=== PATIENT | male | born 2000 | race Caucasian/White ===

== ENCOUNTER 2022-09-07 10:34 | Inpatient (IN) ==
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
[2022-09-07 12:16] LABS: Basophils # (auto) 0.03 K/uL (0-0.2); Basophils % (auto) 0.9 %; Eosinophils # (auto) 0.02 K/uL (0-0.50); Eosinophils % (auto) 0.6 %; Hematocrit (blood only) 42.8 % (42.0-52.0); Hemoglobin 14.8 g/dl (14.0-18.0); Lymphocytes # (auto) 0.97 K/uL (1.2-3.4); Lymphocytes % (auto) 28.6 %; Mean Corpuscular Hemoglobin 30.3 pg (25.0-34.0); Mean Corpuscular Hgb Conc 34.6 g/dL (32.0-36.0); Mean Corpuscular Volume 87.5 fL (80.0-100.0); Mean Platelet Volume 9.3 fL (9.4-12.4); Monocytes # (auto) 0.29 K/uL (0.11-0.59); Monocytes % (auto) 8.6 %; Neutrophils # (auto) 2.08 K/uL (1.40-6.50); Neutrophils % (auto) 61.3 %; Platelet Count 212 K/uL (130-400); RDW Coefficient of Variation 11.6 % (11.5-14.5); RDW Standard Deviation 37.6 fL (36.4-46.3); Red Blood Count 4.89 M/uL (4.70-6.10); White Blood Count 3.39 K/ul (4.8-10.8)
[2022-09-07 12:25] LABS: Alanine Aminotransferase 14 U/L (7-52); Albumin Globulin Ratio 1.3 (0.9-2); Albumin Level 4.5 gm/dl (3.4-5.0); Alkaline Phosphatase 92 U/L (34-104); Anion Gap 5 (3-11); Aspartate Aminotransferase 18 U/L (13-39); BUN Creatinine Ratio 12.5 (10-20); Bilirubin,Total 0.6 mg/dl (0.2-1.0); Blood Urea Nitrogen 8 mg/dl (6-23); Calcium 9.4 mg/dl (8.5-10.1); Carbon Dioxide 28 mmol/L (21-32); Chloride 106 mmol/L (98-107); Creatinine Clr Calc Pharmacy 174.3 ml/min; Est GFR (African American) > 150.0 ml/min; Globulin 3.4 gm/dl (2.5-4.0); Glucose 94 mg/dl (70-99(Fasting)); Potassium 3.9 mmol/L (3.5-5.1); Sodium 139 mmol/L (136-145); Total Protein 7.9 gm/dl (6.0-8.3)
[2022-09-07 12:46] LABS: Acetaminophen < 3 ug/ml (10-30); Salicylate < 3.0 mg/dl (3.0-30)
[2022-09-07 14:06] LABS: Appearance Urine Clear (Clear); Bilirubin Urine Negative (Negative); Blood Urine Negative (Negative); Color Urine Yellow; Glucose Urine UA Negative (Negative); Ketones Urine Trace (Negative); Leukocyte Esterase Urine Negative (Negative); Nitrite Urine Negative (Negative); Protein Urine Negative (Negative); Specific Gravity Urine 1.016 (1.000-1.030); Urobilinogen Urine Negative (Negative)
[2022-09-07 14:33] LABS: Amphetamines+Metham, Urine Neg (Neg); Barbiturates, Urine Neg (Neg); Benzodiazepine, Urine Neg (Neg); Cocaine, Urine Neg (Neg); MDMA (Ecstacy), Urine Neg (Neg); Methadone, Urine Neg (Neg); Opiate, Urine Neg (Neg); Phencyclidine, Urine Neg (Neg)
[2022-09-07] MEDS ORDERED: ALUMINUM/MAGNESIUM SUSP 30 ML UDC PO PRN (16:02)
[2022-09-07] MEDS ORDERED: BISMUTH SUBSALICYLATE LIQD 236 ML PO PRN (16:02)
[2022-09-07] MEDS ORDERED: hydrOXYzine HCl 25 MG TAB PO PRN ×2 (16:02)
[2022-09-07] MEDS ORDERED: MAGNESIUM HYDROXIDE SUSP 30 ML UDC PO PRN (16:02)
[2022-09-07] MEDS ORDERED: SODIUM CHLORIDE 0.65% NA SOLN 45 ML (OCEAN) PRN (16:02)
[2022-09-07] MEDS ORDERED: ACETAMINOPHEN 325 MG TAB PO PRN (16:02)
[2022-09-07] MEDS ORDERED: FLUARIX QUADRIVALENT 0.5 ML SYR IM ONE (16:14)
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
[2022-09-08] MEDS ORDERED: hydrOXYzine HCl 10 MG TAB PO PRN (11:17)
[2022-09-08] MEDS: ESCITALOPRAM OXALATE 10 MG TAB PO SCH (11:59)
[2022-09-08] MEDS ORDERED: MIRTAZAPINE TAB 15 MG TAB PO SCH (22:00)
[2022-09-09] MEDS: ESCITALOPRAM OXALATE 10 MG TAB PO SCH (08:49)
--- NOTE | 2022-09-09 14:27 | Psychiatric Progress Note ---
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 Diagnostically consistent with major depressive disorder with anxious distress and generalized anxiety disorder with panic attacks as well as social anxiety and some associated body dysmorphia. He is deemed in need of psychiatric hospitalization for diagnostic clarification, safety and stabilization, medication management and development of further coping skills. 09/09/2022: Still with depression and anxiety. Increased fatigue since starting escitalopram and doesn't seem to be due to grogginess from mirtazapine. Discussed medication adjustment options and he would prefer to switch to bedtime dosing of Lexapro and will switch mirtazapine to as needed as Lexapro may be sedating enough that he doesn't require mirtazapine. SW to look into referral for [employer] [facility] program for healthy eating and body dysmorphia support. (1) Recurrent severe major depressive disorder with anxiety: (2) Generalized anxiety disorder with panic attacks: (3) Social anxiety disorder: Plan 09/09/2022: Additional escitalopram 5mg HS dose tonight then tomorrow switch to 10mg HS dosing. Mirtazapine 7.5mg hs prn for insomnia. 09/08/2022: The patient was admitted to the [facility] ([facility] inpatient mental health unit) on q15 min checks (behavioral with suicide precautions) for safety. The patient will participate in group, recreational, and milieu therapies and will be offered additional individual and family sessions as clinically ap propriate. -Start escitalopram 5mg daily -Mirtazapine 7.5mg HS Inventory Assets Strengths: supportive relationships, willing to get treatment, hard worker Needs: safety and stabilization, medication adjustment, additional coping skills, increased outpatient services Suicide Risk Level Suicide Risk Level: High-Moderate (q15 min suicide checks) (severe depression with SI with plan prior to admission and anxiety with panic attacks but feels safe in the hospital, able to safety contract and agrees to let nursing/staff know should they develop plan, intent or feel unable to remain safe.) Suicide Risk Level Comments: Risk Factors Assessment Male: Yes Do You Have Access To A Gun?: No Health Problems: No Mental Health Diagnoses: Yes Substance Use Disorders: No Previous Attempt: No Family History of Suicide: No Previous Psychiatric Hospitalization: No Hopelessness: Yes Protective Factors Assessment Employed: Yes (Works at [employer] part-time) Stable Relationships: Yes Supportive Family: Yes Interval History Identifying Information DUSTY KUMAR is a 22-year-old man and [employer] student who currently lives in an off campus apartment with roommates, has a history of depression and anxiety, and was admitted on 09/07/22 15:28 on a 201 voluntary commitment for severe depression with SI and hopelessness and unable to remain safe. Chief Complaint "I'm a little tired". Review of Systems Sleep Information Total Hours of Sleep: 7 Meal Information Percent Meal Consumed - Breakfast: 100 Percent Meal Consumed - Lunch: 100 Percent Meal Consumed - Dinner: 100 Subjective Subjective Patient was seen & assessed and interval progress reviewed with treatment team nursing and social work. After first dose of escitalopram yesteday he felt more tired and feels more tired again today even though he slept much better with mirtazapine last night. Still with anxiety and depression but feels safe in the hospital. Reviewed option for outpatient eating disorder/body dysmorphia treatment which he is willing to be referred for. Physical Exam Psychiatric Orientation: alert and oriented x 3 Apperance: appropriately dressed and appropriately groomed Eye Contact: good eye contact Motor Behavior: no abnormal motor movements Speech: normal rate/rhythm/volume of speech Affect: + depressed affect and + anxious affect Mood: + depressed mood and + anxious mood Thought Process: goal directed thought process Thought Content: reality based without delusions Suicidal Thoughts: denies suicidal plan (none for in the hospital) and denies suicidal intent; + reports suicidal thoughts (intermittent thoughts ) Homicidal Thoughts: denies homicidal thoughts Hallucinations: no auditory hallucinations and no visual hallucinations Cognition: recent memory grossly intact, remote memory grossly intact, attention grossly intact and language grossly intact Estimated Intelligence: consistent with education level Insight: + fair insight Judgment: + fair judgement Vital Signs (Past 24 Hours) Last Vital Signs Temp 36.6 C 09/09/22 06:42 Pulse 74 09/09/22 06:43 Resp 16 09/09/22 06:42 BP 95/59 L 09/09/22 06:43 Pulse Ox 99 09/08/22 06:00 O2 Del Method Room Air 09/08/22 06:00 Results & Data ([facility]) Current Inpatient Medications Current Inpatient Medications: Current Inpatient Medications Acetaminophen (Acetaminophen 325 Mg Tab) 650 mg PO Q4H PRN PRN Reason: Headache or Minor Fever Stop: 10/07/22 16:01 Al Hydrox/Mg Hydrox/Simethicone (Aluminum/Magnesium Susp 30 Ml Udc) 30 ml PO Q4H PRN PRN Reason: GI Upset Stop: 10/07/22 16:01 Bismuth Subsalicylate (Bismuth Subsalicylate Liqd 236 Ml) 15 ml PO PRN PRN PRN Reason: Loose Stool Stop: 10/07/22 16:01 Escitalopram Oxalate (Escitalopram Oxalate 10 Mg Tab) 5 mg PO QAM ROBERT Stop: 10/08/22 11:59 Last Admin: 09/09/22 08:49 Dose: 5 mg Hydroxyzine HCl (Hydroxyzine Hcl 25 Mg Tab) 50 mg PO HSZ PRN PRN Reason: Insomnia Stop: 10/07/22 16:01 Hydroxyzine HCl (Hydroxyzine Hcl 10 Mg Tab) 10 mg PO Q4H PRN PRN Reason: Anxiety Stop: 10/07/22 16:01 Magnesium Hydroxide (Magnesium Hydroxide Susp 30 Ml Udc) 30 ml PO DAILY PRN PRN Reason: Constipation Stop: 10/07/22 16:01 Mirtazapine (Mirtazapine Tab 15 Mg Tab) 7.5 mg PO HS ROBERT Stop: 10/08/22 21:59 Last Admin: 09/08/22 21:30 Dose: 7.5 mg Sodium Chloride (Sodium Chloride 0.65% Na Soln 45 Ml ([place])) 1 - 2 sprays NA PRN PRN PRN Reason: Nasal Dryness/Congestion Stop: 10/07/22 16:01 Mental Health & Subst Abuse Tx Psychiatrist Name of Psychiatrist: Radu Reich - Simran Ansari PA-C Psychiatrist's Date Of Appointment With Psychiatric Provider: 09/17/22 Time of Appointment with Psychiatrist: 1:30 PM (please call 24 hrs in advance if you need to reschedule) Psychiatric Appointment Comment: [address] [place] [address] Therapist Name of Therapist: [facility] - Darrion Acosta LCSW Therapist's Therapy Appointment Comment: [address] [place] Assistant Research Scientist Name of Assistant Research Scientist: [employer] Phone Number for Assistant Research Scientist: [phone] Case Management Appointment Comment: Please check your [employer] email for Zoom link. Post Discharge Appointments Primary Care Physician Name Of Family Doctor/PCP: ANTHONY Contact Information Discharge Discharge Address: [address] [place] [address]
[2022-09-09] MEDS: MIRTAZAPINE TAB 15 MG TAB PO PRN (21:38)
[2022-09-09] MEDS ORDERED: ESCITALOPRAM OXALATE 10 MG TAB PO SCH (22:00)
--- NOTE | 2022-09-10 11:48 | Psychiatric Progress Note ---
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 Diagnostically consistent with major depressive disorder with anxious distress and generalized anxiety disorder with panic attacks as well as social anxiety and some associated body dysmorphia. He is deemed in need of psychiatric hospitalization for diagnostic clarification, safety and stabilization, medication management and development of further coping skills. 09/10/2022: Mood starting to improve. Tolerated HS dose of escitalopram much better without fatigue today, remains agreeable to taking 10mg dose of escitalopram starting tonight. Continuing to discuss ways to challenge cognitive distortions and involve his supports. (1) Recurrent severe major depressive disorder with anxiety: (2) Generalized anxiety disorder with panic attacks: (3) Social anxiety disorder: Plan 09/10/2022: Escitalopram 10mg HS 09/09/2022: Additional escitalopram 5mg HS dose tonight then tomorrow switch to 10mg HS dosing. Mirtazapine 7.5mg hs prn for insomnia. 09/08/2022: The patient was admitted to the [facility] ([facility] mental health unit) on q15 min checks (behavioral with suicide precautions) for safety. The patient will participate in group, recreational, and milieu therapies and will be offered additional individual and family sessions as clinically appropriate. -Start escitalopram 5mg daily -Mirtazapine 7.5mg HS Inventory Assets Strengths: supportive relationships, willing to get treatment, hard worker Needs: safety and stabilization, medication adjustment, additional coping skills, increased outpatient services Suicide Risk Level Suicide Risk Level: Moderate (q15 min suicide checks) (severe depression with SI with plan prior to admission and anxiety with panic attacks but mood improving, denies SI and feels safe in the hospital, able to safety contract and agrees to let nursing/staff know should they develop plan, intent or feel unable to remain safe.) Suicide Risk Level Comments: Risk Factors Assessment Male: Yes Do You Have Access To A Gun?: No Health Problems: No Mental Health Diagnoses: Yes Substance Use Disorders: No Previous Attempt: No Family History of Suicide: No Previous Psychiatric Hospitalization: No Hopelessness: Yes Protective Factors Assessment Employed: Yes (Works at [employer] part-time) Stable Relationships: Yes Supportive Family: Yes Interval History Identifying Information DUSTY KUMAR is a 22-year-old man and [employer] student who currently lives in an off campus apartment with roommates, has a history of depression and anxiety, and was admitted on 09/07/22 15:28 on a 201 voluntary commitment for severe depression with SI and hopelessness and unable to remain safe. Chief Complaint "I had a lot of anxiety this morning". Review of Systems Sleep Information Total Hours of Sleep: 6.5 Meal Information Percent Meal Consumed - Breakfast: 70 Percent Meal Consumed - Lunch: 100 Percent Meal Consumed - Dinner: 100 Subjective Subjective Patient was seen & assessed and interval progress reviewed with treatment team nursing and social work. Attending all groups. met with [facility] counselor this morning and had some anxiety after this as he thought more about how he might explain to his friends and boss where he has been and what lead to him being in the hospital. We reviewed different ways he talk with others depending on how much or how little he feels comfortable sharing with them. He doesn't have the fatigue today with holding the morning dose of escitalopram. He slept well last night with HS dose escitalopram and didn't need the mirtazapine. He denies any side effects from the higher dose of escitalopram yesterday. Physical Exam Psychiatric Orientation: alert and oriented x 3 Apperance: appropriately dressed and appropriately groomed Eye Contact: good eye contact Motor Behavior: no abnormal motor movements Speech: normal rate/rhythm/volume of speech Affect: + anxious affect Mood: + depressed mood and + anxious mood Thought Process: goal directed thought process Thought Content: reality based without delusions Suicidal Thoughts: denies suicidal thoughts, denies suicidal plan and denies suicidal intent Homicidal Thoughts: denies homicidal thoughts Hallucinations: no auditory hallucinations and no visual hallucinations Cognition: recent memory grossly intact, remote memory grossly intact, attention grossly intact and language grossly intact Estimated Intelligence: consistent with education level Insight: + fair insight Judgment: + fair judgement Vital Signs (Past 24 Hours) Last Vital Signs Temp 36.5 C 09/10/22 06:25 Pulse 72 09/10/22 06:26 Resp 16 09/10/22 06:25 BP 104/58 L 09/10/22 06:26 Pulse Ox 99 09/08/22 06:00 O2 Del Method Room Air 09/08/22 06:00 Results & Data ([facility]) Current Inpatient Medications Current Inpatient Medications: Current Inpatient Medications Acetaminophen (Acetaminophen 325 Mg Tab) 650 mg PO Q4H PRN PRN Reason: Headache or Minor Fever Stop: 10/07/22 16:01 Al Hydrox/Mg Hydrox/Simethicone (Aluminum/Magnesium Susp 30 Ml Udc) 30 ml PO Q4H PRN PRN Reason: GI Upset Stop: 10/07/22 16:01 Bismuth Subsalicylate (Bismuth Subsalicylate Liqd 236 Ml) 15 ml PO PRN PRN PRN Reason: Loose Stool Stop: 10/07/22 16:01 Escitalopram Oxalate (Escitalopram Oxalate 10 Mg Tab) 10 mg PO HS ROBERT Stop: 10/10/22 21:59 Hydroxyzine HCl (Hydroxyzine Hcl 25 Mg Tab) 50 mg PO HSZ PRN PRN Reason: Insomnia Stop: 10/07/22 16:01 Hydroxyzine HCl (Hydroxyzine Hcl 10 Mg Tab) 10 mg PO Q4H PRN PRN Reason: Anxiety Stop: 10/07/22 16:01 Magnesium Hydroxide (Magnesium Hydroxide Susp 30 Ml Udc) 30 ml PO DAILY PRN PRN Reason: Constipation Stop: 10/07/22 16:01 Mirtazapine (Mirtazapine Tab 15 Mg Tab) 7.5 mg PO HS PRN PRN Reason: Insomnia Stop: 10/08/22 21:59 Last Admin: 09/09/22 21:38 Dose: 7.5 mg Sodium Chloride (Sodium Chloride 0.65% Na Soln 45 Ml ([place])) 1 - 2 sprays NA PRN PRN PRN Reason: Nasal Dryness/Congestion Stop: 10/07/22 16:01 Mental Health & Subst Abuse Tx Psychiatrist Name of Psychiatrist: Radu Reich - Simran Ansari PA-C Psychiatrist's Date Of Appointment With Psychiatric Provider: 09/17/22 Time of Appointment with Psychiatrist: 1:30 PM (please call 24 hrs in advance if you need to reschedule) Psychiatric Appointment Comment: [address] [facility], [place] [address] Therapist Name of Therapist: [place] [facility] - Darrion Acosta LCSW Therapist's Therapy Appointment Comment: [address] [facility], [address] [place] Correctional Officer Name of Correctional Officer: [employer] Phone Number for Correctional Officer: [phone] Case Management Appointment Comment: Please check your [employer] email for Zoom link. Post Discharge Appointments Primary Care Physician Name Of Family Doctor/PCP: [facility] Primary Care Time of Appointment with PCP: Follow up as needed for primary care. Provider Appointment Comment: [facility], [place] [facility] Contact Information Discharge Discharge Address: [address] [place] [address]
[2022-09-10] MEDS: ESCITALOPRAM OXALATE 10 MG TAB PO SCH (21:13)
[2022-09-10] MEDS: MIRTAZAPINE TAB 15 MG TAB PO PRN (21:23)
--- NOTE | 2022-09-11 20:41 | Psychiatric Progress Note ---
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 Diagnostically consistent with major depressive disorder with anxious distress and generalized anxiety disorder with panic attacks as well as social anxiety and some associated body dysmorphia. He is deemed in need of psychiatric hospitalization for diagnostic clarification, safety and stabilization, medication management and development of further coping skills. 09/11/2022: Mood gradually improving, tolerating higher dose of escitalopram. More future-oriented. Actively participating in groups and treatment discussions. (1) Recurrent severe major depressive disorder with anxiety: (2) Generalized anxiety disorder with panic attacks: (3) Social anxiety disorder: Plan 09/11/2022: Continue current medications and tx plan. 09/10/2022: Escitalopram 10mg HS 09/09/2022: Additional escitalopram 5mg HS dose tonight then tomorrow switch to 10mg HS dosing. Mirtazapine 7.5mg hs prn for insomnia. 09/08/2022: The patient was admitted to the [facility]) on q15 min checks (behavioral with suicide precautions) for safety. The patient will participate in group, recreational, and milieu therapies and will be offered additional individual and family sessions as clinically appropriate. -Start escitalopram 5mg daily -Mirtazapine 7.5mg HS Inventory Assets Strengths: supportive relationships, willing to get treatment, hard worker Needs: safety and stabilization, medication adjustment, additional coping skills, increased outpatient services Suicide Risk Level Suicide Risk Level: Moderate (q15 min suicide checks) (severe depression with SI with plan prior to admission and anxiety with panic attacks but mood improving, denies SI and feels safe in the hospital, able to safety contract and agrees to let nursing/staff know should they develop plan, intent or feel unable to remain safe.) Suicide Risk Level Comments: Risk Factors Assessment Male: Yes Do You Have Access To A Gun?: No Health Problems: No Mental Health Diagnoses: Yes Substance Use Disorders: No Previous Attempt: No Family History of Suicide: No Previous Psychiatric Hospitalization: No Hopelessness: Yes Protective Factors Assessment Employed: Yes (Works at [employer] part-time) Stable Relationships: Yes Supportive Family: Yes Interval History Identifying Information DUSTY KUMAR is a 22-year-old man and [employer] student who currently lives in an off campus apartment with roommates, has a history of depression and anxiety, and was admitted on 09/07/22 15:28 on a 201 voluntary commitment for severe depression with SI and hopelessness and unable to remain safe. Chief Complaint "I'm good". Review of Systems Sleep Information Total Hours of Sleep: 7 Meal Information Percent Meal Consumed - Breakfast: 75 Percent Meal Consumed - Lunch: 80 Percent Meal Consumed - Dinner: 100 Subjective Subjective Patient was seen & assessed and interval progress reviewed with treatment team nursing and social work. Attending groups. Had family meeting mid-day and felt well supported by his mom. Slept well with escitalopram at hs. No side effects. Still feels a little tired and with decreased motivation in the morning but this is improving compared with prior to this hospitalization. Reviewed anticipated time course of when depressive symptoms of decreased motivation/low energy kimmie uld improve with escitalopram over next 2-6 weeks. He is looking forward to seeing his mom this weekend and going to an educational activity on Thursday. Denies SI. No other questions or concerns. Physical Exam Psychiatric Orientation: alert and oriented x 3 Apperance: appropriately dressed and appropriately groomed Eye Contact: good eye contact Motor Behavior: no abnormal motor movements Speech: normal rate/rhythm/volume of speech Affect: euthymic affect Mood: + depressed mood and + anxious mood Thought Process: goal directed thought process Thought Content: reality based without delusions Suicidal Thoughts: denies suicidal thoughts, denies suicidal plan and denies suicidal intent Homicidal Thoughts: denies homicidal thoughts Hallucinations: no auditory hallucinations and no visual hallucinations Cognition: recent memory grossly intact, remote memory grossly intact, attention grossly intact and language grossly intact Estimated Intelligence: consistent with education level Insight: + fair insight Judgment: good judgement Vital Signs (Past 24 Hours) Last Vital Signs Temp 36.8 C 09/11/22 20:00 Pulse 73 09/11/22 06:42 Resp 18 09/11/22 06:41 BP 106/70 09/11/22 06:42 Pulse Ox 99 09/08/22 06:00 O2 Del Method Room Air 09/08/22 06:00 Results & Data ([facility]) Current Inpatient Medications Current Inpatient Medications: Current Inpatient Medications Acetaminophen (Acetaminophen 325 Mg Tab) 650 mg PO Q4H PRN PRN Reason: Headache or Minor Fever Stop: 10/07/22 16:01 Al Hydrox/Mg Hydrox/Simethicone (Aluminum/Magnesium Susp 30 Ml Udc) 30 ml PO Q4H PRN PRN Reason: GI Upset Stop: 10/07/22 16:01 Bismuth Subsalicylate (Bismuth Subsalicylate Liqd 236 Ml) 15 ml PO PRN PRN PRN Reason: Loose Stool Stop: 10/07/22 16:01 Escitalopram Oxalate (Escitalopram Oxalate 10 Mg Tab) 10 mg PO HS ROBERT Stop: 10/10/22 21:59 Last Admin: 09/10/22 21:13 Dose: 10 mg Hydroxyzine HCl (Hydroxyzine Hcl 25 Mg Tab) 50 mg PO HSZ PRN PRN Reason: Insomnia Stop: 10/07/22 16:01 Hydroxyzine HCl (Hydroxyzine Hcl 10 Mg Tab) 10 mg PO Q4H PRN PRN Reason: Anxiety Stop: 10/07/22 16:01 Magnesium Hydroxide (Magnesium Hydroxide Susp 30 Ml Udc) 30 ml PO DAILY PRN PRN Reason: Constipation Stop: 10/07/22 16:01 Mirtazapine (Mirtazapine Tab 15 Mg Tab) 7.5 mg PO HS PRN PRN Reason: Insomnia Stop: 10/08/22 21:59 Last Admin: 09/10/22 21:23 Dose: 7.5 mg Sodium Chloride (Sodium Chloride 0.65% Na Soln 45 Ml ([place])) 1 - 2 sprays NA PRN PRN PRN Reason: Nasal Dryness/Congestion Stop: 10/07/22 16:01 Mental Health & Subst Abuse Tx Psychiatrist Name of Psychiatrist: Radu Reich - Simran Ansari PA-C Psychiatrist's Date Of Appointment With Psychiatric Provider: 09/22/22 Time of Appointment with Psychiatrist: 10:20 AM (please call 24 hrs in advance if you need to reschedule) Psychiatric Appointment Comment: [address] [facility], [place] [address] Therapist Name of Therapist: [place] [facility] - Darrion Acosta LCSW Therapist's Date of Therapist Appointment: 09/18/22 Time of Therapist Appointment: 2:00 PM Therapy Appointment Comment: Please complete paperwork in patient portal (in [employer] email). Goal Umpire Name of Goal Umpire: Student Brandie and Marc Jimenez Phone Number for Goal Umpire: [phone] Date of Appointment with Goal Umpire: 09/15/22 Time of Appointment with Goal Umpire: 9:00 AM Case Management Appointment Comment: Please check your [employer] email for Zoom link. Post Discharge Appointments Primary Care Physician Name Of Family Doctor/PCP: [facility] Primary Care Time of Appointment with PCP: Follow up as needed for primary care. Provider Appointment Comment: [facility], [place] FOY Contact Information Discharge Discharge Address: [address] [place] [address]
[2022-09-11] MEDS: ESCITALOPRAM OXALATE 10 MG TAB PO SCH (21:27)
--- NOTE | 2022-09-12 08:46 | Discharge Summary ---
Date of Service September 12, 2022 History of Present Illness Will presents for psychiatric admission for worsening depression, anxiety, hopelessness and SI with possible plans of using a knife and feeling unable to remain safe outside of secure hospital setting. His mood has been worsening in the context of multiple psychosocial stressors including school and work stress, thinking about the future and has been struggling to attend classes. Finds he's been feeling more overwhelmed about being around people both at work and when walking to class such as wondering if they are thinking negative things about him or judging him in some way. He's experienced anxiety all his life but it's gotten worse since his sophomore year of college. Uncomfortable in social situations and when giving presentations. He's also been experiencing increased generalized anxiety with panic attacks occurring more frequently and more intense starting two weeks ago now occurring twice daily (previously occurred once per week). He started to develop SI last week and endorses symptoms of depression including anhedonia, hopelessness, difficulty concentrating, decreased motivation/energy level, decreased appetite and decreased sleep about 4-5 hours per night with sleep onset insomnia and waking up early. Further recent history reviewed and confirmed as documented by EM psych CM on 09/07/2022: "Patient presents calm, sad, somewhat anxious, but remains cooperative in answering all questions asked of him. Patient came to the ED today because he is having trouble controlling his negative thoughts that have turned into more intense suicidal ideations, onset about one week ago. Patient has not developed a plan but had thoughts to use a knife. Patient states I dont want to be alive. At the beginning of the last semester, patient used a wire drawing setter and burned his arm, this is the first time he participated in self- harm. 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 Patient does not have any outpatient mental health providers, nor is he prescribed any psychotropic medications, but has a history of both. Patient denies any previous psychiatric admissions. Patient identifies stressors as job at [employer] and school. Patient has been getting his homework completed, but has not been attending classes. Patient reports depressive symptoms as feelings of helpless/hopelessness, worthlessness, loss of daily functioning, lack of motivation, isolating/avoiding, anhedonia, poor concentration, decrease in ADLs, appetite and sleep. Patient describes moderate/severe anxiety on most days with symptoms of chest discomfort, shortness of breath, sweating, trembling, excessive worry, racing thoughts and headaches with occasional panic attacks. Patient reports occasional alcohol use, 1x weekly, denies drug and tobacco use. Patient lives in an apartment with 3 other roommates and he reports relationships are okay. 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 Patient especially enjoys running, listening to music, crossword puzzles and talking/spending time with friends. Patient does admit to losing quite a bit of interest in activities that had once brought him sharee." He is not currently prescribed any psychiatric medications. Psychiatric ROS notable for no current nor history of symptoms of neftali, psychosis, PTSD, OCD. 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 History of self- harm via burning once about 1 month ago after a falling out with friends. Physical Exam Vital Signs (Past 24 Hours) Last Vital Signs Temp 36.5 C 09/12/22 06:52 Pulse 73 09/12/22 06:52 Resp 16 09/12/22 06:52 BP 95/63 L 09/12/22 06:52 Pulse Ox 99 09/08/22 06:00 O2 Del Method Room Air 09/08/22 06:00 See admission H&P and DOD summary. Principal Diagnosis Major Depressive Disorder with anxious distress Psychiatric Data See daily stay summary. In short, patient was engaged with the social/therapeutic milieu of the unit, safety was maintained and the patient was cooperative with care. Medication changes included initiation of escitalopram 10mg HS and mirtazapine 7.5mg HS prn for insomnia and he tolerated this well. A family session was held and safety plan was completed prior to discharge. He actively and insightfully participated in safety planning and in discussions about ways to seek support and recognizing warning signs and utilizing coping skills. Reviewed mobile apps that could be used for additional ways to have their safety plan and contacts easily available should thoughts of SI re-emerge in the future. Reviewed importance of seeking emergency care should SI intensify, worsen or should they feel unsafe in the future which they agree to do. On the day of discharge he stated his mood was "pretty good" and remained future-oriented including seeing his friends, getting new shoes, seeing his mom and engaging in aftercare appointments for psychiatry, therapy and [employer] student care and advocacy. Day of Discharge Assessment Today the patient voices readiness for discharge. They note improvement in mood and anxiety. They deny thoughts of harm to self or others. Thoughts are organized and they are clinically improved from admission. There is no evidence of psychosis. They improved in the hospital with support and medication adjustments. They agree to take medications as prescribed and keep follow-up appointments. At the time of the discharge they are deemed to be stable and appropriate for outpatient level of care. They are not deemed to be at imminent risk of harm to self or others. They are aware of emergency and crisis services. Knows to call 911 or go to nearest emergency care center if in a crisis which cannot be handled as an outpatient. Transition of Care Transition Of Care Record: was reviewed with the patient Advance Directives Advance Directives Information Provided: Yes Advance Directives: No Mental Health Advance Directive: No Advance Directives on File: No Living Will: No Power of Bleach Machine Operator: No Advance Directives Reason:: Declines as Mental Health Visit. Suicide Risk Level Suicide Risk Level Comments: Acute risk is low given improvement in mood and denial of SI, lack of access to lethal means, improvement in sleep, hopefulness. Chronic risk is low given few non-modifiable risk factors: psychiatric co-morbid diagnoses, history of self- harm, but also with many protective factors including: employed/student, good social support, sense of responsibility to family and social supports, outpatient care in place, positive coping skills, positive problem solving, capacity to establish therapeutic alliance, willingness to engage with treatment, capacity for self-observation. Counseled on ways to reduce acute and chronic risk including engaging with outpatient providers, using safety plan if needed, utilizing supports, taking medication, and using coping skills. Modifiable risk factors of SI, anxiety and depression were addressed during hospitalization through development of new coping skills, family meeting, safety planning, and medication adjustments. Risk Factors Assessment Male: Yes Do You Have Access To A Gun?: No Health Problems: No Mental Health Diagnoses: Yes Substance Use Disorders: No Previous Attempt: No Family History of Suicide: No Previous Psychiatric Hospitalization: No Hopelessness: No Protective Factors Assessment Employed: Yes (Works at [employer] part-time) Stable Relationships: Yes Supportive Family: Yes Discharge Data Lab Results 09/07/22 09/07/22 09/07/22 11:35 11:51 11:51 WBC 3.39 L RBC 4.89 Hgb 14.8 Hct 42.8 MCV 87.5 MCH 30.3 MCHC 34.6 RDW Std Deviation 37.6 RDW Coeff of Leyla 11.6 Plt Count 212 MPV 9.3 L Immature Gran % (Auto) 0.0 Neut % (Auto) 61.3 Lymph % (Auto) 28.6 Hartley % (Auto) 8.6 Eos % (Auto) 0.6 Baso % (Auto) 0.9 Neut # (Auto) 2.08 Lymph # (Auto) 0.97 L Hartley # (Auto) 0.29 Eos # (Auto) 0.02 Baso # (Auto) 0.03 Immature Gran # (Auto) 0.00 L Sodium 139 Potassium 3.9 Chloride 106 Carbon Dioxide 28 Anion Gap 5 BUN 8 Creatinine 0.64 Est Cr Clr Drug Dosing 174.3 Est GFR ( Amer) > 150.0 Est GFR (Non-Af Amer) 140.0 BUN/Creatinine Ratio 12.5 Glucose 94 Calcium 9.4 Total Bilirubin 0.6 AST 18 ALT 14 Alkaline Phosphatase 92 Total Protein 7.9 Albumin 4.5 Globulin 3.4 Albumin/Globulin Ratio 1.3 TSH Urine Color Urine Appearance Urine pH Ur Specific Dobson Urine Protein Urine Glucose (UA) Urine Ketones Urine Blood Urine Nitrite Urine Bilirubin Urine Urobilinogen Ur Leukocyte Esterase Salicylates Urine Opiates Screen Ur Methadone, Qual Acetaminophen Urine Barbiturates Ur Phencyclidine (PCP) U Amphetamin/Meth Scrn MDMA (Ecstasy) Screen U Benzodiazepines Scrn Ur Cocaine Metabolite U Marijuana (THC) Screen Ethyl Alcohol mg/dL SARS-CoV-2, RNA, NAAT NEGATIVE 09/07/22 09/07/22 09/07/22 11:51 11:51 11:51 WBC RBC Hgb Hct MCV MCH MCHC RDW Std Deviation RDW Coeff of Leyla Plt Count MPV Immature Gran % (Auto) Neut % (Auto) Lymph % (Auto) Hartley % (Auto) Eos % (Auto) Baso % (Auto) Neut # (Auto) Lymph # (Auto) Hartley # (Auto) Eos # (Auto) Baso # (Auto) Immature Gran # (Auto) Sodium Potassium Chloride Carbon Dioxide Anion Gap BUN Creatinine Est Cr Clr Drug Dosing Est GFR ( Amer) Est GFR (Non-Af Amer) BUN/Creatinine Ratio Glucose Calcium Total Bilirubin AST ALT Alkaline Phosphatase Total Protein Albumin Globulin Albumin/Globulin Ratio TSH 1.207 Urine Color Urine Appearance Urine pH Ur Specific Dobson Urine Protein Urine Glucose (UA) Urine Ketones Urine Blood Urine Nitrite Urine Bilirubin Urine Urobilinogen Ur Leukocyte Esterase Salicylates < 3.0 L Urine Opiates Screen Ur Methadone, Qual Acetaminophen < 3 L Urine Barbiturates Ur Phencyclidine (PCP) U Amphetamin/Meth Scrn MDMA (Ecstasy) Screen U Benzodiazepines Scrn Ur Cocaine Metabolite U Marijuana (THC) Screen Ethyl Alcohol mg/dL < 10.0 SARS-CoV-2, RNA, NAAT 09/07/22 09/07/22 13:52 13:52 WBC RBC Hgb Hct MCV MCH MCHC RDW Std Deviation RDW Coeff of Leyla Plt Count MPV Immature Gran % (Auto) Neut % (Auto) Lymph % (Auto) Hartley % (Auto) Eos % (Auto) Baso % (Auto) Neut # (Auto) Lymph # (Auto) Hartley # (Auto) Eos # (Auto) Baso # (Auto) Immature Gran # (Auto) Sodium Potassium Chloride Carbon Dioxide Anion Gap BUN Creatinine Est Cr Clr Drug Dosing Est GFR ( Amer) Est GFR (Non-Af Amer) BUN/Creatinine Ratio Glucose Calcium Total Bilirubin AST ALT Alkaline Phosphatase Total Protein Albumin Globulin Albumin/Globulin Ratio TSH Urine Color Yellow Urine Appearance Clear Urine pH 8.0 H Ur Specific Dobson 1.016 Urine Protein Negative Urine Glucose (UA) Negative Urine Ketones Trace H Urine Blood Negative Urine Nitrite Negative Urine Bilirubin Negative Urine Urobilinogen Negative Ur Leukocyte Esterase Negative Salicylates Urine Opiates Screen Neg Ur Methadone, Qual Neg Acetaminophen Urine Barbiturates Neg Ur Phencyclidine (PCP) Neg U Amphetamin/Meth Scrn Neg MDMA (Ecstasy) Screen Neg U Benzodiazepines Scrn Neg Ur Cocaine Metabolite Neg U Marijuana (THC) Screen Neg Ethyl Alcohol mg/dL SARS-CoV-2, RNA, NAAT Hospital Course (1) Recurrent severe major depressive disorder with anxiety: (2) Generalized anxiety disorder with panic attacks: (3) Social anxiety disorder: Plan 09/11/2022: Continue current medications and tx plan. 09/10/2022: Escitalopram 10mg HS 09/09/2022: Additional escitalopram 5mg HS dose tonight then tomorrow switch to 10mg HS dosing. Mirtazapine 7.5mg hs prn for insomnia. 09/08/2022: The patient was admitted to the [facility] ([facility] inpatient mental health unit) on q15 min checks (behavioral with suicide precautions) for safety. The patient will participate in group, recreational, and milieu therapies and will be offered additional individual and family sessions as clinically appropriate. -Start escitalopram 5mg daily -Mirtazapine 7.5mg HS Mental Health & Subst Abuse Tx Psychiatrist Name of Psychiatrist: Radu Reich - Simran Ansari PA-C Psychiatrist's Date Of Appointment With Psychiatric Provider: 09/22/22 Time of Appointment with Psychiatrist: 10:20 AM (please call 24 hrs in advance if you need to reschedule) Psychiatric Appointment Comment: [address] [place] [address] Therapist Name of Therapist: [facility] - Darrion Acosta LCSW Therapist's Date of Therapist Appointment: 09/18/22 Time of Therapist Appointment: 2:00 PM Therapy Appointment Comment: Please complete paperwork in patient portal (in [employer] email). 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 Post Discharge Appointments Primary Care Physician Name Of Family Doctor/PCP: [facility] Primary Care Time of Appointment with PCP: Follow up as needed for primary care. Provider Appointment Comment: [facility], [place] [facility] Other #1: Name of Aftercare Appointment: [facility] Kelley, Yisel Carter ([facility]) Phone Number of Aftercare Appointment: [phone] Date of Aftercare Appointment: 09/17/22 Time of Aftercare Appointment: 12:30 pm Aftercare Appointment Comment: Check your [facility] email for appointment details (can reschedule if needed). Contact Information Discharge Discharge Address: [address] [place] [address], [address] Discharge Plan Discharge Items Patient Disposition: Home - Self-Care Reason For Visit: MENTAL HEALTH EVALUATION Discharge Diagnosis: Major Depressive Disorder with anxious distress Activity: Resume your previous activity Non-emergency contact: Primary Care Provider, Psychiatrist and Therapist Call non-emergency contact if: you have any medication questions and your symptoms worsen Follow-up/Referrals: [place] [Primary Care Provider] - Diet: Regular Addtl Attending Provider Instructions: Optional mobile apps we discussed: -Suicide safety plan -Virtual Hope Box -Panic automobile mechanic motor SPECIAL CARE INSTRUCTIONS: 1. Follow through with your scheduled aftercare appointments. If unable to keep an appointment, please call to reschedule. 2. Take your medication only as prescribed. Medication should not be changed or stopped without the approval of your doctor. In the event of worsening symptoms or concerns about side effects, contact your doctor immediately. 3. Utilize new healthy coping skills, anger management skills, and stress management skills learned during your hospitalization. Journal feelings and process them with a support person. Identify stressors or situations that may result in relapse, deterioration or inappropriate behaviors and develop a plan to deal with those issues. 4. If your coping skills are ineffective and you are in crisis, contact your outpatient providers for direction. If unable to reach your providers, please call the [facility] CRISIS LINE AT , go to the [facility] walk-in center at [address], [address], [place], or go to the closest Emergency Room. 5. Avoid alcohol and un-prescribed drugs. 6. You have been provided with the Mental Health Advance Directives Pamphlet for your review. 7. Your condition is stable for discharge to outpatient level of care, but recovery is an ongoing process. Ifthoughts to harm yourself or others return, follow the safety plan developed during your stay. Planning for a safe return home includes securing weapons. Our treatment team recommends weaponsbe removed from the home until your outpatient provider reassesses your progress. In rare cases where the items themselvescannot be removed, guns and ammunitionshould be secured separatelyand keys stored by a reliable personoutside of the home. If you were admitted on an involuntary commitment, the police or other legal authorities may be involved in this process. AFTERCARE APPOINTMENTS: * Please call your insurance company prior to your scheduled appointment to confirm your aftercare providers are covered. Take your insurance information to your appointments. WHO TO CALL AND WHEN: Medical Emergencies: For questions or emergencies related to your hospital stay, please contact the Inpatient Behavioral Health Unit at [phone]. National crisis hotline: 826 A cull grader is on-call 12/01 for the Behavioral Health Unit for emergencies At any time you feel your situation is an emergency, you may also call 911 immediately. Pending Studies at Discharge: No Stand-Alone Forms: My [facility] Medications and DC Order Prescriptions: New escitalopram oxalate 10 mg tablet 10 mg PO HS 30 Days Qty: 30 0RF mirtazapine 15 mg tablet 7.5 mg PO HS PRN (Reason: insomnia) 30 Days Qty: 15 0RF Discharge Orders: Discharge Order (Routine); Ordered 09/12/22 Ordered By: Yisel Phillips Admission Data Admit Date/Time: 09/07/22 15:28 Attending Provider: Yisel Phillips Admit Provider: Yisel Phillips Primary Care Provider: [place] Other Interventions: PSY Interdisciplinary Discharge Planning Last Done: 09/12/22 09:35 Coding Level of Care Code 74758 D/C day mgmt > 30 min Diagnoses Recurrent severe major depressive disorder with anxiety F33.2; F41.9 Generalized anxiety disorder with panic attacks F41.1; F41.0 Social anxiety disorder F40.10 Time Spent (min) 50
== END 2022-09-12 11:04 | disposition home or self-care (01) | DRG 885 ==
LOC: ED 10:34 → 3S 15:28